=== PATIENT | female | born 1960 | race Caucasian/White ===

== ENCOUNTER 2021-02-26 10:44 | Emergency (ER) | payer OTHER ==
[~2021-02-26 10:44] MED LIST: Iopamidol 370 76% 125 ML VIAL FS ONE
[2021-02-26 11:27] LABS: #Basophils 0.1 thou/uL (0.0-0.2); #Eosinphils 0.3 thou/uL (0.0-0.7); #Lymphocytes 2.1 thou/uL (1.20-3.40); #Monocytes 0.3 thou/uL (0.11-0.59); #Neutrophils 8.4 thou/uL (1.40-6.50); %Basophils 0.8 % (0.0-1.0); %Eosinophils 2.5 % (0.0-10.0); %Lymphocytes 18.6 % (21.0-51.0); %Monocytes 2.4 % (0.0-10.0); %Neutrophils 75.8 % (42.0-75.0); Hemoglobin 15.5 g/dL (12.0-16.0); Mean Corpuscular HGB CONC 32.4 g/dL (32.0-36.0); Mean Corpuscular Volume 92.4 fL (78.0-98.0); Mean Platelet Volume 10.8 fL (7.4-10.4); Platelet Count 198 thou/uL (130-400); RBC Distribution Width 11.3 % (11.5-14.5); Red Blood Cell (RBC) Count 5.18 mill/uL (4.20-5.40)
[2021-02-26] MEDS ORDERED: niCARdipine 20MG In NaCl 20 MG/200 ML BAG ONE (11:31)
[2021-02-26] MEDS ORDERED: Aspirin Chewable 81 MG TAB ONE (11:33)
[2021-02-26 11:35] LABS: INR-International Normal Ratio 0.9; PTT 26.9 sec (22.9-36.1)
[2021-02-26 11:41] LABS: ALT (SGPT) 36 U/L (8-55); AST (SGOT) 20 U/L (5-34); Alkaline Phosphatase 115 U/L (40-110); Anion Gap 16 mmol/L (10-20); BUN (Urea Nitrogen) 13 mg/dL (9.8-20.1); Bilirubin, Total 0.7 mg/dL (0.2-1.2); Calc. Creatinine Clearance 0 mL/min (70-130); Calcium 9.8 mg/dL (7.8-10.44); Carbon Dioxide 25 mmol/L (23-31); Chloride 100 mmol/L (98-107); Globulin 3.2 g/dL (2.4-3.5); Glucose 292 mg/dL (80-115); Protein, Total 7.2 g/dL (5.8-8.1); Sodium 137 mmol/L (136-145)
[2021-02-26] MEDS ORDERED: Sodium Chloride 0.9% 100 ML BAG ONE (13:49)
== END 2021-02-26 12:14 | disposition short-term general hospital (02) ==
LOC: MADERS 10:44
DX: G81.94 Hemiplegia, unspecified affecting left nondominant side (principal); E11.9 Type 2 diabetes mellitus without complications; I10 Essential (primary) hypertension; R29.702 NIHSS score 2
CPT/HCPCS: 36416; 70450; 70496; 70498; 71045; 80053; 84484; 85025; 85610; 85730; 93005; 96365; J3490; Q9967